=== PATIENT | female | born 1975 | race Caucasian/White ===

== ENCOUNTER → 2018-09-16 14:00 | Outpatient (POV) | payer OTHER, SELFPAY ==
[2018-09-16 14:08] VITALS: BP 189/78; PULSE 82; RESP 18; O2SAT 98
--- NOTE | 2018-09-17 17:09 | [facility]H.PMCON ---
Assessment and Plan (1) Back pain Current visit: Yes Status: Chronic Category: Medical Code(s): M54.9 - Dorsalgia, unspecified (2) Neck pain Current visit: Yes Status: Chronic Category: Medical Code(s): M54.2 - Cervicalgia - Assessment and plan all Dx Assessment and Plan for all problems:: The imaging brought by the patient is pretty benign in nature. Patient did not have any MRIs recently. Patient and I discussed getting a new MRI. Patient and I also discussed neuro stimulation. I gave her information in regards to that she has been to review it. We will obtain a new MRI and follow-up with the patient after this. Patient is not a narcotic candidate both due to her ORT score and her failure of a pill count in the previous clinic. Dr. Gill has reviewed this note and agrees with this plan of care. This note was dictated using voice recognition software and may contain errors or omissions HPI - Data of Consult Consult date: 09/16/18 Requesting Physician: Radha Stringer APRN Primary Care Provider: Referral Provider, MD - Consult Narrative Reason for consult: Back and neck pain History of present illness: Ms. Winter is a 43 year old female who presents today for consultation in regards to her back and neck pain. Patient was in a previous pain clinic where she was receiving [place] however she failed a pill count and was discharged from that clinic. Patient has had epidurals in the past but states that they were too painful to repeat. Patient had physical therapy several years ago with no relief. Patient is tried and failed multiple oral medications including [place], diclofenac, Flexeril, baclofen, amitriptyline, meloxicam, Motrin, Skelaxin, Percocet, naproxen, tramadol, Topamax, Prozac, morphine. Patient states at her last clinic she felt like she was being held down in a drilling machine was used on her lower back CC: Radha Stringer APRN [facility] History I have reviewed the patient's past medical history: Yes Medical History: Denies:: Diabetes Mellitus Type 1, Diabetes Mellitus Type 2 Other Surgeries: Yes: , Hysterectomy-Total Amputation: No Fractures: No - *Social History Smoking Status: Current every day smoker Tobacco Type: cigarettes # Packs/Day (cigarettes): 1 Alcohol Intake: never *Occupational Status:: employed Housing: house *Travel in the last 8 weeks: None - Psychiatric History Expresses thoughts of harming self/others: None Suicide Plan Description: No Plan Family Hx:: Unable to obtain Review of Systems - Review of Systems ROS General: no recent weight change, no fever, no sleep disturbances Respiratory: no cough, no shortness of air, no recurring pulmonary infections Cardiovascular/Peripheral Vascular: No chest pain, No palpitations, no edema, no shortness of breath. Gastrointestinal: no incontinence, normal bowel movements reported Genitourinary: no incontinence Musculoskeletal: Back pain, leg pain, neck pain Psychiatric: normal mood/ affect Neurological: [denies weakness in extremities], [denies balance issues] Meds Home Medications Medication Instructions Recorded Confirmed Type Amitriptyline HCl [Elavil 25mg 50 mg PO HS 09/16/18 09/16/18 History tablet] Cetirizine HCl [Allergy Relief] 10 mg PO DAILY 09/16/18 09/16/18 History Duloxetine HCl 60 mg PO DAILY 09/16/18 09/16/18 History Estradiol 1 mg PO DAILY 09/16/18 09/16/18 History Methocarbamol [Robaxin 500mg Tab] 500 mg PO BID 09/16/18 09/16/18 History Tizanidine HCl 4 mg PO HS 09/16/18 09/16/18 History hydrOXYzine pamoate [Hydroxyzine 50 mg PO HS 09/16/18 09/16/18 History Pamoate] Allergies Allergy/AdvReac Type Severity Reaction Status Date / Time No Known Allergies Allergy Unverified 05/08/17 15:24 Objective Vital signs: Pulse Resp BP Pulse Ox 82 18 189/78 H 98 09/16/18 14:08 09/16/18 14:08 09/16/18 14:08 09/16/18 14:08 Narrative: [facility]
--- NOTE | 2018-09-17 17:12 | P.CONS_ITS ---
Assessment and Plan (1) Back pain Current visit: Yes Status: Chronic Category: Medical Code(s): M54.9 - Dorsalgia, unspecified (2) Neck pain Current visit: Yes Status: Chronic Category: Medical Code(s): M54.2 - Cervicalgia - Assessment and plan all Dx Assessment and Plan for all problems:: The imaging brought by the patient is pretty benign in nature. Patient did not have any MRIs recently. Patient and I discussed getting a new MRI. Patient and I also discussed neuro stimulation. I gave her information in regards to that she has been to review it. We will obtain a new MRI and follow-up with the patient after this. Patient is not a narcotic candidate both due to her ORT sc ore and her failure of a pill count in the previous clinic. Dr. Gill has reviewed this note and agrees with this plan of care. This note was dictated using voice recognition software and may contain errors or omissions HPI - Data of Consult Consult date: 09/16/18 Requesting Physician: Radha Stringer APRN Primary Care Provider: Referral Provider, MD - Consult Narrative Reason for consult: Back and neck pain History of present illness: Ms. Winter is a 43 year old female who presents today for consultation in regards to her back and neck pain. Patient was in a previous pain clinic where she was receiving [place] however she failed a pill count and was discharged from that clinic. Patient has had epidurals in the past but states that they were too painful to repeat. Patient had physical therapy several years ago with no relief. Patient is tried and failed multiple oral medications including [place], diclofenac, Flexeril, baclofen, amitriptyline, meloxicam, Motrin, Skelaxin, Percocet, naproxen, tramadol, Topamax, Prozac, morphine. Patient states at her last clinic she felt like she was being held down in a drilling machine was used on her lower back CC: Radha Stringer APRN [facility] History I have reviewed the patient's past medical history: Yes Medical History: Denies:: Diabetes Mellitus Type 1, Diabetes Mellitus Type 2 Other Surgeries: Yes: , Hysterectomy-Total Amputation: No Fractures: No - *Social History Smoking Status: Current every day smoker Tobacco Type: cigarettes # Packs/Day (cigarettes): 1 Alcohol Intake: never *Occupational Status:: employed Housing: house *Travel in the last 8 weeks: None - Psychiatric History Expresses thoughts of harming self/others: None Suicide Plan Description: No Plan Family Hx:: Unable to obtain Review of Systems - Review of Systems ROS General: no recent weight change, no fever, no sleep disturbances Respiratory: no cough, no shortness of air, no recurring pulmonary infections Cardiovascular/Peripheral Vascular: No chest pain, No palpitations, no edema, no shortness of breath. Gastrointestinal: no incontinence, normal bowel movements reported Genitourinary: no incontinence Musculoskeletal: Back pain, leg pain, neck pain Psychiatric: normal mood/ affect Neurological: [denies weakness in extremities], [denies balance issues] Meds Home Medications Medication Instructions Recorded Confirmed Type Amitriptyline HCl [Elavil 25mg 50 mg PO HS 09/16/18 09/16/18 History tablet] Cetirizine HCl [Allergy Relief] 10 mg PO DAILY 09/16/18 09/16/18 History Duloxetine HCl 60 mg PO DAILY 09/16/18 09/16/18 History Estradiol 1 mg PO DAILY 09/16/18 09/16/18 History Methocarbamol [Rafita
== END ==
PROVIDERS: Visit Provider Clinical Nurse Specialist Family Health
DX: M54.9 Dorsalgia, unspecified (principal); M54.2 Cervicalgia
CPT/HCPCS: 99202